=== PATIENT | female | born 1985 | race Caucasian/White ===

== ENCOUNTER 2023-10-25 13:18 | Day surgery (SDC) | payer OTHER ==
[~2023-10-25] VITALS: Ht 154.9 cm; Wt 74.3 kg
--- NOTE | 2023-10-25 07:43 | NUR ---
10/25/23 0743 Veronique Valdovinos TIMEOUT COMPLETED PRIOR TO NERVE BLOCK BY DR MENA
[~2023-10-25 13:18] MED LIST: AMOCLA875 PO; Bupivacaine 0.5% Inj 50 ML Vial (NON CHARGE) ONE; CIPRO500 MG PO; Cortisporin Ear10 M1; HYDROXYZINE; Lactated Ringer's 1,000 ML IV ONE; Percocet 5-3251 EACH PO; Ropivacaine 0.5% HCL/PF 5 MG/ML 30ML Vial ONE
[2023-10-25] MEDS ORDERED: THERA-D2000 UNIT PO (13:51)
[2023-10-25] MEDS ORDERED: Ropivacaine 0.5% HCl/Pf 5 MG/ML 20ML VIAL INJ ONE (13:54)
[2023-10-25] MEDS ORDERED: Lidocaine HCl 2% 10 ML SDA INJ ONE (13:55)
[2023-10-25] MEDS ORDERED: EPINEPhrine HCl 1 MG/ML 1ML Amp XX ONE (13:55)
[2023-10-25] MEDS ORDERED: Lactated Ringer's 1,000 ML IV ONE ×2 (14:06→14:42)
[2023-10-25] MEDS ORDERED: propofoL 60 ML IV ONE (14:35)
[2023-10-25] MEDS ORDERED: propofoL 20 ML IV ONE (14:44)
[2023-10-25] MEDS ORDERED: CeFAZolin Sodium 2,000 MG VIAL ONE (14:46)
[2023-10-25] MEDS ORDERED: CeFAZolin Sodium 1000 mg Vial ONE (14:46)
[2023-10-25] MEDS ORDERED: NS 50 ML IV ONE (14:47)
[2023-10-25] MEDS ORDERED: FentaNYL Citrate 50 MCG/ML 2 ML Injection ONE (14:49)
[2023-10-25] MEDS ORDERED: Dexamethasone Sod Phos 10 MG/ML 1ML VIAL ONE (14:52)
[2023-10-25] MEDS ORDERED: Ondansetron HCl 2 MG / ML 2ML Vial ONE (15:03)
[2023-10-25] MEDS ORDERED: Ketorolac Tromethamine 30mg Vial ONE (15:03)
[2023-10-25] MEDS ORDERED: propofoL 40 ML IV ONE (15:07)
[2023-10-25] MEDS ORDERED: HYDROcodone 5-APAP 325 TAB ONE (16:16)
[2023-10-25 16:35] VITALS: BP 117/66
--- NOTE | 2023-10-25 16:44 | NUR ---
10/25/23 1644 Pete Byrd ASSUMED FROM [facility].RDS AT 1615. D/C INSTRUCTIONS ALREADY PROVIDED AT THAT TIME, PER REPORT.
== END 2023-10-25 16:50 | disposition home or self-care (01) ==
LOC: ORSCSDS 13:18
PROVIDERS: Podiatrist Foot & Ankle Surgery
PROC: 0QBJ0ZZ Excision of Right Fibula, Open Approach (ICD-10-PCS; principal; 2023-10-25 14:15)
PROC: 0QBL0ZZ Excision of Right Tarsal, Open Approach (ICD-10-PCS; principal; 2023-10-25 14:15)
DX: M89.8X6 Other specified disorders of bone, lower leg (principal); M89.8X7 Other specified disorders of bone, ankle and foot; Z87.891 Personal history of nicotine dependence
CPT/HCPCS: A9270; J0171; J0690; J1100; J1885; J2001; J2405; J2704; J2795; J3010

== ENCOUNTER 2024-01-18 23:05 | Emergency (ER) | payer OTHER ==
[~2024-01-18] VITALS: Ht 162.6 cm; Wt 63.5 kg
[~2024-01-18 23:05] MED LIST changes: -Bupivacaine 0.5% Inj 50 ML Vial (NON CHARGE) ONE; -Lactated Ringer's 1,000 ML IV ONE; -Ropivacaine 0.5% HCL/PF 5 MG/ML 30ML Vial ONE; +THERA-D2000 UNIT PO
[2024-01-18 23:12] VITALS: BP 135/85
== END 2024-01-18 23:18 | disposition home or self-care (01) ==
LOC: ER 23:05
DX: S60.452A Superficial foreign body of right middle finger, initial encounter (principal); W45.8XXA Other foreign body or object entering through skin, initial encounter; Z87.891 Personal history of nicotine dependence
CPT/HCPCS: 99282

== ENCOUNTER 2024-10-12 16:17 | Emergency (ER) | payer OTHER ==
[~2024-10-12] VITALS: Ht 157.5 cm; Wt 81.7 kg
[2024-10-12] MEDS ORDERED: HYDROcodone 5-APAP 325 TAB PO ONE (17:55)
[2024-10-12 18:04] VITALS: BP 132/77
== END 2024-10-12 18:07 | disposition home or self-care (01) ==
LOC: ER 16:17
DX: M25.512 Pain in left shoulder (principal); Z87.891 Personal history of nicotine dependence
CPT/HCPCS: 73030; 99283-25; A9270

== ENCOUNTER 2025-03-01 00:37 | Emergency (ER) | payer BC ==
[~2025-03-01] VITALS: Ht 154.9 cm; Wt 81.7 kg
[2025-03-01] MEDS ORDERED: Ibuprofen600 MG PO (02:33)
[2025-03-01] MEDS ORDERED: PENVK500 PO (02:33)
[2025-03-01 02:52] VITALS: BP 113/70
== END 2025-03-01 02:52 | disposition home or self-care (01) ==
LOC: ER 00:37
DX: K04.7 Periapical abscess without sinus (principal); Z59.89 Other problems related to housing and economic circumstances
CPT/HCPCS: 99282; A9270